=== PATIENT | female | born 1965 | race Caucasian/White ===

== ENCOUNTER → 2021-04-03 | Day surgery (SDC) | payer OTHER ==
[~2021-04-03] VITALS: Ht 160 cm; Wt 89.8 kg
[~2021-04-03] MED LIST: AMPHETAMINE SAL20 MG PO; ARMOUR THYROID30 MG PO; DULOXETINE HCL30 MG PO; METOPROLOL SUCC25 MG PO; PERCOCET 5-3251 EACH PO; PROGESTERONE100 MG PO; SPIRONOLACTONE50 M1 PO; SUCRALFATE1 GM PO; VENTOLIN HFA18 GM INH
== END | disposition home or self-care (01) ==
LOC: FAS 06:57
DX: K80.64 Calculus of gallbladder and bile duct with chronic cholecystitis without obstruction (principal); E03.9 Hypothyroidism, unspecified; J45.909 Unspecified asthma, uncomplicated; I10 Essential (primary) hypertension; E06.3 Autoimmune thyroiditis; E66.01 Morbid (severe) obesity due to excess calories; Z68.35 Body mass index [BMI] 35.0-35.9, adult; Z77.22 Contact with and (suspected) exposure to environmental tobacco smoke (acute) (chronic); Z79.899 Other long term (current) drug therapy; Z88.0 Allergy status to penicillin; Z98.84 Bariatric surgery status
CPT/HCPCS: 93005; J1956; J2250; J2405; J2704; J2710; J3010; J7120

== ENCOUNTER 2021-07-25 00:32 | Emergency (ER) | payer OTHER ==
[2021-07-25 02:52] LABS: BASOPHIL 0.2 % (0-2); EOSINOPHIL 0.4 % (0-5); HCT 39.8 % (37.0-47.0); HGB 12.9 g/dl (12.5-16.0); LYMPHOCYTE 21.8 % (15-48); MCH 28.5 pg (25.0-31.0); MCHC 32.4 g/dL (32.0-36.0); MCV 87.9 fL (78.0-100.0); MONOCYTE 9.6 % (0-12); MPV 11.6 fL (6.0-9.5); NEUTROPHIL 67.8 % (41-80); NRBC 0; PLT 190 K/uL (150-400); RBC 4.53 M/uL (4.20-5.40); RDW 13.2 % (11.5-14.0); WBC 4.8 K/uL (4.0-10.5)
[2021-07-25 03:04] LABS: MONOSPOT (MONONUCLEOSIS) NEGATIVE (NEGATIVE)
[2021-07-25 03:38] LABS: ALBUMIN 3.7 g/dL (3.4-5.0); BILIRUBIN - TOTAL 0.5 mg/dL (0.2-1.0); BUN/CREAT RATIO (CALC) 16.5 RATIO; CREATININE 1.27 mg/dL (0.51-0.95); GLOBULIN (CALCULATION) 3.2 g/dL; POTASSIUM 3.1 mmol/L (3.5-5.1); TOTAL PROTEIN 6.9 g/dL (6.4-8.2)
[2021-07-25 03:41] LABS: INFLUENZA A NAA NEGATIVE (NEGATIVE)
[2021-07-25 03:57] LABS: CORONAVIRUS 2019 SARS-COV-2 POSITIVE (NEGATIVE)
== END 2021-07-25 09:15 | disposition home or self-care (01) ==
LOC: FER 00:32
PROVIDERS: Internal Medicine
DX: U07.1 COVID-19 (principal); E87.6 Hypokalemia; E83.42 Hypomagnesemia; I10 Essential (primary) hypertension; Z23 Encounter for immunization; Z88.0 Allergy status to penicillin; Z79.899 Other long term (current) drug therapy
CPT/HCPCS: 36415; 36600; 71045; 80053; 82803; 83605; 83735; 84145; 84443; 84484; 85025; 86308; 93005; J2405; J3475; J7120; M0245; Q0245; U0002